=== PATIENT | male | born 1965 | race Two or more races ===

== ENCOUNTER 2021-01-30 12:46 | Day surgery (SDC) | payer OTHER | END 2021-01-30 16:40 | disposition home or self-care (01) | LOC: AMB-ENDOS 12:46 | PROVIDERS: ATTEND Colon & Rectal Surgery | DX: D12.8 Benign neoplasm of rectum (principal); Z20.822 Contact with and (suspected) exposure to COVID-19; K64.1 Second degree hemorrhoids ==